=== PATIENT | female | born 1995 | race Caucasian/White ===

== ENCOUNTER 2021-02-14 08:22 | Outpatient (RCR) | payer BC, SELFPAY ==
[2021-02-14] MEDS: COVID-19 VACC, MRNA(PFIZER)/PF 30 MCG/0.3 ML SYRINGE IM (15:19)
[2021-03-07] MEDS: COVID-19 VACC, MRNA(PFIZER)/PF 30 MCG/0.3 ML SYRINGE IM (13:30)
== END 2021-04-03 23:59 ==
LOC: IMMUN 08:22
PROVIDERS: Referring Provider Family Medicine; Visit Provider Family Medicine
DX: Z23 Encounter for immunization (principal)
CPT/HCPCS: 0001A; 0002A; 91300

== ENCOUNTER 2022-12-16 22:15 | Emergency (ER) | payer OTHER, SELFPAY ==
[2022-12-16 22:16] VITALS: BP 153/91; PULSE 88; RESP 16; TEMP 36.3; O2SAT 100
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
== END 2022-12-16 23:56 | disposition home or self-care (01) ==
PROVIDERS: Emergency Provider Emergency Medicine; Visit Provider Emergency Medicine
DX: S63.91XA Sprain of unspecified part of right wrist and hand, initial encounter (principal); S60.211A Contusion of right wrist, initial encounter; V40.0XXA Car driver injured in collision with pedestrian or animal in nontraffic accident, initial encounter; W22.11XA Striking against or struck by driver side automobile airbag, initial encounter
CPT/HCPCS: 73110; 99282